=== PATIENT | male | born 1990 | race Caucasian/White ===

== ENCOUNTER 2018-01-06 13:48 | Emergency (ER) | payer OTHER ==
[~2018-01-06] VITALS: Ht 165.1 cm; Wt 53.2 kg
[2018-01-06 13:55] VITALS: BP 134/83; Ht 165.1 cm; Wt 53.2 kg
[2018-01-06] MEDS ORDERED: ADVAIR HFA 230-12 GM INH (13:56)
[2018-01-06] MEDS ORDERED: NEURONTIN600 MG PO (13:56)
[2018-01-06] MEDS ORDERED: SPIRIVA18 MCG INH (13:56)
[2018-01-06] MEDS ORDERED: CATAPRES0.1 MG PO (13:56)
[2018-01-06] MEDS ORDERED: PROTONIX40 MG PO (13:57)
[2018-01-06] MEDS ORDERED: SINGULAIR10 MG PO (13:57)
[2018-01-06] MEDS ORDERED: ALBUTEROL1.25 MG/3 INH (13:57)
[2018-01-06] MEDS ORDERED: PROVENTIL/2.5 MG/3 M INH (13:58)
[2018-01-06] MEDS ORDERED: MEDROL DOSE PACK4 MG PO (15:39)
== END 2018-01-06 16:12 | disposition home or self-care (01) ==
LOC: D.ER 13:48
DX: J45.901 Unspecified asthma with (acute) exacerbation (principal); R07.89 Other chest pain; K21.9 Gastro-esophageal reflux disease without esophagitis

== ENCOUNTER → 2018-01-08 12:05 | Outpatient (CLI) | payer OTHER ==
[2018-01-06 13:55] VITALS: BMI 19.5
[~2018-01-08 12:05] MED LIST: ADVAIR HFA 230-12 GM INH; ALBUTEROL1.25 MG/3 INH; CATAPRES0.1 MG PO; MEDROL DOSE PACK4 MG PO; NEURONTIN600 MG PO; PROTONIX40 MG PO; PROVENTIL/2.5 MG/3 M INH; SINGULAIR10 MG PO; SPIRIVA18 MCG INH
== END | disposition home or self-care (01) ==
LOC: D.RAD 12:05
DX: M54.5 Low back pain (principal); M21.372 Foot drop, left foot

== ENCOUNTER 2018-09-09 10:48 | Emergency (ER) | payer OTHER ==
[~2018-09-09] VITALS: Ht 165.1 cm; Wt 58.2 kg
[2018-09-09 10:50] VITALS: Ht 165.1 cm; Wt 58.2 kg
[2018-09-09] MEDS ORDERED: PERMETHRIN60 GM TOPICAL (11:41)
== END 2018-09-09 11:48 | disposition home or self-care (01) ==
LOC: D.ER 10:48
DX: B89 Unspecified parasitic disease (principal)

== ENCOUNTER 2019-05-02 18:28 | Emergency (ER) | payer MEDICAID ==
[~2019-05-02] VITALS: Ht 165.1 cm; Wt 68.6 kg
[~2019-05-02 18:28] MED LIST changes: +PERMETHRIN60 GM TOPICAL
[2019-05-02 18:37] VITALS: Ht 165.1 cm; Wt 68.6 kg
[2019-05-02 19:23] LABS: BASOPHILS 0.2 % (0-2); EOSINOPHILS 8.1 % (0-7); HEMATOCRIT 46.4 % (42.0-54.0); HEMOGLOBIN 15.6 g/dL (13.5-17.5); LYMPHOCYTES 36.4 % (15-50); MCH 26.4 pg (26.0-34.0); MCHC 33.6 g/dL (31.0-37.0); MCV 78.5 fL (80.0-100.0); MEAN PLATELET VOLUME 10.7 fL (7.4-10.4); MONOCYTES 8.8 % (2-11); NEUTROPHILS 46.5 % (40-80); PLATELET COUNT 159 10x3/uL (130-400); RBC 5.91 10x6/uL (4.20-6.10); RDW 14.9 % (11.5-14.5); WBC 4.5 10x3/uL (4.8-10.8)
[2019-05-02 19:40] LABS: CALC OSMOLALITY 284 mosm/kg (275-300); CALCIUM 8.9 mg/dL (8.5-10.1); CARBON DIOXIDE 27.4 mmol/L (21.0-32.0); CHLORIDE - SERUM 102 mmol/L (98-107); CREATININE - SERUM 1.1 mg/dL (0.6-1.3); GLUCOSE 90 mg/dL (74-106); POTASSIUM - SERUM 4.5 mmol/L (3.5-5.1); SODIUM 140 mmol/L (136-145); UREA NITROGEN 30 mg/dL (7-18); eGFR NON AFRICAN AMERICAN 83 mL/min (90-120)
[2019-05-02 19:57] LABS: ALBUMIN 4.1 g/dL (3.4-5.0); ALKALINE PHOSPHATASE 70 U/L (46-116); ALT (SGPT) 32 U/L (10-68); BILIRUBIN - TOTAL 1.01 mg/dL (0.2-1.3); CKMB 2.7 U/L (0.0-3.6); CREATINE KINASE 264 UL (21-232); PROTEIN - SERUM 7.8 g/dL (6.4-8.2)
[2019-05-02 19:58] LABS: PRO BNP 5 pg/mL (0-125)
[2019-05-02] MEDS ORDERED: ALBUTEROL2.5 MG/3 M INH (20:41)
[2019-05-02 21:10] VITALS: BP 122/81
== END 2019-05-02 21:11 | disposition home or self-care (01) ==
LOC: D.ER 18:28
PROVIDERS: Family Medicine
DX: J45.901 Unspecified asthma with (acute) exacerbation (principal); G62.9 Polyneuropathy, unspecified; I10 Essential (primary) hypertension; K21.9 Gastro-esophageal reflux disease without esophagitis

== ENCOUNTER 2019-11-15 21:04 | Emergency (ER) | payer MEDICAID ==
[~2019-11-15] VITALS: Ht 165.1 cm; Wt 59.1 kg
[~2019-11-15 21:04] MED LIST changes: +ALBUTEROL2.5 MG/3 M INH
[2019-11-15 21:08] VITALS: Ht 165.1 cm; Wt 59.1 kg
[2019-11-15] MEDS ORDERED: NAPROSYN500 MG PO (21:32)
[2019-11-15 22:10] VITALS: BP 135/82
[2019-11-16] MEDS ORDERED: MEDROL DOSE PACK4 MG PO (04:08)
== END 2019-11-15 22:10 | disposition home or self-care (01) ==
LOC: D.ER 21:04
DX: M79.672 Pain in left foot (principal); S99.922A Unspecified injury of left foot, initial encounter; I10 Essential (primary) hypertension; J45.909 Unspecified asthma, uncomplicated; K21.9 Gastro-esophageal reflux disease without esophagitis; G62.9 Polyneuropathy, unspecified

== ENCOUNTER 2019-11-16 03:07 | Emergency (ER) | payer MEDICAID ==
[~2019-11-16] VITALS: Ht 165.1 cm; Wt 59.9 kg
[~2019-11-16 03:07] MED LIST changes: +NAPROSYN500 MG PO
[2019-11-16 03:11] VITALS: Ht 165.1 cm; Wt 59.9 kg
[2019-11-16] MEDS ORDERED: MEDROL DOSE PACK4 MG PO (04:08)
[2019-11-16 04:59] VITALS: BP 121/74
== END 2019-11-16 05:00 | disposition home or self-care (01) ==
LOC: D.ER 03:07
DX: J45.909 Unspecified asthma, uncomplicated (principal); I10 Essential (primary) hypertension; K21.9 Gastro-esophageal reflux disease without esophagitis; G62.9 Polyneuropathy, unspecified